=== PATIENT | female | born 1985 | race African-American/Black ===

== ENCOUNTER 2020-01-27 22:41 | Emergency (ER) | payer SELFPAY ==
[~2020-01-27] VITALS: Ht 144.8 cm; Wt 50.8 kg
[2020-01-27 23:06] LABS: STREPTOCOCCUS GRP A ANTIGEN NEGATIVE (NEGATIVE)
[2020-01-27 23:16] LABS: INFLUENZAE A&B ANTIGEN (RAPID) NEGATIVE (NEGATIVE)
--- OUTSIDE RECORDS SUMMARY | 2020-01-27 23:22 | XMS REPORT | Continuity of Care Document ---
Author Author [facility] Organization [facility] Address [address] [place] [address] Phone Unavailable Care Team Providers Care Laboratory Manager Name Role Phone Asked, Pcp No PCP Unavailable Payers Payer Name Policy Type Policy Number Effective Date Expiration Date S ource Problems Condition Name Condition Details Condition Category Status Onset Date Resolution Date Last Treatment Date Treating Clinician Comments Source Smoker Smoker Disease Active 2017-12-16 00:00:00 [facility] H/O LEEP H/O LEEP Disease Active 2017-12-16 00:00:00 [facility] Allergies, Adverse Reactions, Alerts Allergy Name Allergy Type Status Severity Reaction(s) Onset Date Inacti ve Date Treating Clinician Comments Source Multivitamin With Minerals Propensity to adverse reactions to drug Active Nausea and Vomiting 2017-12-16 00:00:00 [facility] acetaminophen DA [facility] 2017-07-01 00:00:00 [facility] Social History Social Habit Start Date Stop Date Quantity Comments Source History of tobacco use Cigarette Smoker [facility] Sex Assigned At [facility] Alcohol intake 2018-08-13 00:00:00 2018-08-13 00:00:00 Current drinker of alcohol (finding) [facility] History SDOH Food Worry 2017-12-16 00:00:00 2017-12-16 00:00:00 1 [facility] History SDOH Food Scarcity 2017-12-16 00:00:00 2017-12-16 00:00:00 1 [facility] Tobacco Comment 2017-12-16 00:00:00 2017-12-16 00:00:00 5 or 6 cig a day [facility] Alcohol Comment 2017-12-16 00:00:00 2017-12-16 00:00:00 wine occasion al [facility] Cigarettes smoked current (pack per day) - Reported 00:00:00 2017-07-03 00:00:00 [facility] Cigarette pack-years 2017-07-03 00:00:00 2017-07-03 00:00:00 [facility] Tobacco use and exposure 2017-07-03 00:00:00 2017-07-03 00:00:00 Angel[facility] lat[facility] used [facility] Smoking Status Start Date Stop Date Source Current every day smoker 2018-08-13 00:00:00 [facility] Medications Ordered Medication Name Filled Medication Name Start Date Stop Da te Current Medication? Ordering Clinician Indication Dosage Frequency Signature (SIG) Comments Components Source ibuprofen (MOTRIN) 400 mg tablet 2017-12-16 00:00:00 Yes Chronic right shoulder pain 400mg Take 1 tablet by mouth every 6 h ours as needed for Pain. [facility] Procedures This patient has no known procedures. Plan of Care Planned Activity Planned Date Details Comments Source Future Scheduled Test 2022-12-16 00:00:00 Screening for curry gnant neoplasm of cervix (procedure) [code = 944889947] [facility] Scheduled Test 2019-12-10 00:00:00 IMM Influenza Seas onal Dec to May (>/= 19 yrs) [code = IMM Influenza Seasonal Dec to May (>/= 19 yrs)] [facility] Scheduled Test 2014 00:00:00 Screening for curry gnant neoplasm of cervix (procedure) [code = 041285674] [facility] Encounters Start Date/Time End Date/Time Encounter Type Admission Type [facility] Care Department Encounter ID Source 2018-01-29 00:00:00 2018-01-29 00:00:00 Outpatient [facility] [id number] [facility] 2018-01-14 00:00:00 2018-01-14 00:00:00 Outpatient [facility] [id number] [facility] 2017-12-20 14:06:24 2017-12-20 14:06:24 Outpatient [facility] [id number] [facility] 2017-12-20 13:35:03 2017-12-20 13:35:03 Outpatient [facility] [id number] [facility] 2017-12-17 00:00:00 2017-12-17 00:00:00 Outpatient [facility] [id number] [facility] 2017-12-17 00:00:00 2017-12-17 00:00:00 Outpatient [facility] [id number] [facility] 2017-12-16 09:41:57 2017-12-16 09:41:57 Outpatient [facility] [id number] [facility] 2017-12-16 08:23:09 2017-12-16 08:23:09 Outpatient [facility] [id number] [facility] 2017-12-16 00:00:00 2017-12-16 00:00:00 Outpatient [facility] [id number] [facility] Results This patient has no known results.
--- OUTSIDE RECORDS SUMMARY | 2020-01-27 23:22 | XMS REPORT | Clinical Summary ---
Author Author [facility] Organization [facility] Address Unknown Phone Unavailable Care Team Providers Care Senior Analyst Name Role Phone PCP Unavailable Allergies Comments Active Allergy Reactions Severity Noted Date Multivitamin With Nausea and 12/16/2017 Minerals Vomiting Medications End Date Status Medication Sig Dispensed Refills Start Date Active ibuprofen (MOTRIN) 400 mg Take 1 tablet 30 tablet 0 tabletIndications: by mouth 8 Chronic right shoulder every 6 hours pain as needed for Pain. Active Problems Problem Noted Date Smoker 12/16/2017 H/O LEEP 12/16/2017 Immunizations Name Administration Dates Next Due Influenza, 12/16/2017 (Deferred: Patie nt Refused) Vaccine<FLUCELVAX>(Multi- Dose) Tdap (Tetanus Toxoid, 12/16/2017 (Deferred: Patie nt Refused) Reduced Diphtheria Toxoid And Acellular Pertussis, Absorbed) Family History Relation Name Status Comments Brother Alive 1 brother Father Alive Maternal Aunt cancer Alive Mother Alive Sister Alive 1 sister Social History Date Tobacco Use Types Packs/Day Years Used Current Every Day Smoker Cigarettes 5 Smokeless Tobacco: Never Used Tobacco Cessation: Ready to Quit: No; Co unseling Given: Yes Comments: 5 or 6 cig a day Drinks/Week oz/Week Comments Alcohol Use wine occasional Yes Food Insecurity Answer Date Recorded Within the past 12 months, you worried that your Never maximiliano e 12/16/2017 food would run out before you got money to buy more. Within the past 12 months, the food you bought Never true 12/16/2017 just didn't last and you didn't have mo charlie to get more. Sex Assigned at Date Recorded Not on file Industry Job Start Date Occupation Not on file Not on file Not on file Travel End Travel History Travel Start No recent travel history available. Last Filed Vital Signs Not on file Plan of Treatment Health Maintenance Due Date Last Done Comments Pap Cervical Cancer Scrn 2014 IMM Influenza Seasonal 12/10/2019 Oct to May (>/= 19 yrs) HPV Cervical Cancer Scrn 12/16/2022 12/16/2017 Results Not on fileafter 01/26/2019
--- OUTSIDE RECORDS SUMMARY | 2020-01-27 23:22 | XMS REPORT | Clinical Summary ---
Author Author [facility] Organization [facility] Address Unknown Phone Unavailable Care Team Providers Care Peanut Salter Name Role Phone Asked, No Pcp PCP Unavailable Allergies No Known Active Allergies Medications No known medications Active Problems Not on file Surgical History Surgery Date Site/Laterality Comments DILATION AND CURETTAGE OF UTERUS Medical History Medical History Date Comments Abnormal Pap smear of cervix Social History Date Tobacco Use Types Packs/Day Years Used Current Every Day Smoker Cigarettes 0.5 5 Smokeless Tobacco: Never Used Drinks/Week oz/Week Comments Alcohol Use No Sex Assigned at Date Recorded Not on file Last Filed Vital Signs Not on file Plan of Treatment Not on file Results Not on fileafter 01/26/2019 Advance Directives For more information, please contact: [phone] Patient Dispatcher Motor Vehicle Explanation Type Date Recorded Advance Directives, 02/28/2017 2:37 AM Living Will and Medical Power of Regional Director
--- NOTE | 2020-01-28 00:07 | Diagnostic Imaging Report ---
EXAMINATION: CHEST SINGLE (PORTABLE) INDICATION: cough/sore throat COMPARISON: None FINDINGS: TUBES and LINES: None. LUNGS: Normal lung volumes. Patchy opacities in the mid right lung. Left lung is clear. PLEURA: No pleural effusion or pneumothorax. HEART AND MEDIASTINUM: The cardiomediastinal silhouette is unremarkable. BONES AND SOFT TISSUES: No acute osseous lesion. Soft tissues are unremarkable. UPPER ABDOMEN: No free air under the diaphragm. IMPRESSION: Patchy opacities in the mid right lung concerning for pneumonia. Signed by: Andrew Howard MD on 01/28/2020 12:04 AM
--- NOTE | 2020-01-28 00:30 | Emergency Department Note ---
History of Present Illnes History of Present Illness Chief Complaint: COVID PUI History of Present Illness This is a 34 year old female walks in for dry cough, loss of voice, and throat pain since last saturday. works in a daycare. She states that she does not know if she has been around covid-positive cases. Since saturday, symptoms have progressively become worse . Historian: Patient Arrival Mode: Car Wastewater Analyst Required: No Onset (how long ago): day(s) (10) Location: CHEST, THROAT, Quality: COUGH, SORE THROAT, HORSE VOICE Radiation: Reports non-radiation Severity: moderate Onset quality: gradual Duration (how long): day(s) (10) Timing of current episode: constant Progression: worsening Chronicity: new Relieving factors: none Exacerbating factors: none Associated symptoms: Reports denies other symptoms Treatments prior to arrival: none Past Medical/Family History Physician Review I have reviewed the patient's past medical and family history. Any updates have been documented here. Past Medical History Recent Fever: No Clinical Suspicion of Infectio: Yes New/Unexplained Change in Ment: No Past Medical History: None Social History Smoking Cessation: Never Smoker Counseling Performed: No Alcohol Use: None Any Illegal Drug Use: No Review of Systems Review of Systems Constitutional: Reports no symptoms EENTM: Reports as per HPI Cardiovascular: Reports no symptoms Respiratory: Reports as per HPI Gastrointestinal: Reports no symptoms Genitourinary: Reports no symptoms Musculoskeletal: Reports no symptoms Integumentary: Reports no symptoms Neurological: Reports no symptoms Psychological: Reports no symptoms Endocrine: Reports no symptoms Hematological/Lymphatic: Reports no symptoms Physical Exam Related Data Allergies: Coded Allergies: No Known Allergies (Unverified , 01/27/20) Triage Vital Signs Vital Signs Date Time Temp Pulse Resp B/P (MAP) Pulse Ox O2 Delivery O2 Flow Rate FiO2 01/27/20 22:48 98.3 79 22 153/92 99 Room Air Vital signs reviewed: Yes Physical Exam CONSTITUTIONAL Constitutional: Present well-developed, Present well-nourished; Absent distressed HENT HENT: Present normocephalic, Present atraumatic, Present nose normal, Present erythema (MILD PHARYNGEAL); Absent oropharyngeal exudate, Absent tonsillar excudate HENT L/R: Present left ext ear normal, Present right ext ear normal EYES Eyes: Reports PERRL, Reports conjunctivae normal NECK Neck: Present ROM normal PULMONARY Pulmonary: Present effort normal, Present breath sounds normal; Absent respiratory distress CARDIOVASCULAR Cardiovascular: Present regular rhythm, Present heart sounds normal, Present capillary refill normal, Present normal rate GASTROINTESTINAL Abdominal: Present soft, Present nontender, Present bowel sounds normal GENITOURINARY Genitourinary: Present exam deferred SKIN Skin: Present warm, Present dry MUSCULOSKELETAL Musculoskeletal: Present ROM normal NEUROLOGICAL Neurological: Present alert, Present oriented x 3, Present no gross motor or sensory deficits PSYCHOLOGICAL Psychological: Present mood/affect normal, Present judgement normal Results Laboratory Laboratory Laboratory Tests Test 01/27/20 22:50 Influenza Virus Types A,B Antigen Negative (NEGATIVE) Group A Streptococcus Screen Negative (NEGATIVE) Lab results reviewed: Yes Imaging Imaging results reviewed: Yes Impressions Procedure: [id number] DX/CHEST SINGLE (PORTABLE) Exam Date: Exam Time: REPORT STATUS: Signed EXAMINATION: CHEST SINGLE (PORTABLE) INDICATION: cough/sore throat COMPARISON: None FINDINGS: TUBES and LINES: None. LUNGS: Normal lung volumes. Patchy opacities in the mid right lung. Left lung is clear. PLEURA: No pleural effusion or pneumothorax. HEART AND MEDIASTINUM: The cardiomediastinal silhouette is unremarkable. BONES AND SOFT TISSUES: No acute osseous lesion. Soft tissues are unremarkable. UPPER ABDOMEN: No free air under the diaphragm. IMPRESSION: Patchy opacities in the mid right lung concerning for pneumonia. Signed by: Gabriele Rodríguez MD on 01/28/2020 12:04 AM Dictated By: GABRIELE RODRÍGUEZ MD [id number] Transcribed By: JOSE on 01/28/20 0004 COPY TO: LG COTTRELL MD~ Assessment & Plan Medical Decision Making MDM PT WITH COUGH,SORE THROAT RAPID FLU, STREP SCREE, CXR ORDERED TO EVAL FOR PNEUMONIA, INFLUENZA, STREP P HARYNGITIS Assessment & Plan Final Impression: (1) Pneumonia Depart Disposition: HOME, SELF-CARE Last Vital Signs Date Time Temp Pulse Resp B/P (MAP) Pulse Ox O2 Delivery O2 Flow Rate FiO2 01/27/20 22:48 98.3 79 22 153/92 99 Room Air LG COTTRELL MD Jan 28, 2020 00:30
[2020-01-28 00:32] VITALS: BP 107/82
== END 2020-01-28 00:33 | disposition home or self-care (01) ==
LOC: ER 23:17
DX: J18.9 Pneumonia, unspecified organism (principal); R05 Cough
CPT/HCPCS: 71045; 83518; 87070; 87400; 99283

== ENCOUNTER 2020-02-05 12:26 | Emergency (ER) | payer SELFPAY ==
[~2020-02-05] VITALS: Ht 144.8 cm; Wt 50.8 kg
== END 2020-02-05 13:00 | disposition home or self-care (01) ==
LOC: ER 13:00
DX: R20.2 Paresthesia of skin (principal)
CPT/HCPCS: 99282

== ENCOUNTER 2021-05-18 21:53 | Emergency (ER) | payer OTHER ==
[~2021-05-18] VITALS: Ht 144.8 cm; Wt 50.8 kg
[2021-05-18] MEDS ORDERED: HYDROXYZINE HCL25 MG PO (22:04)
== END 2021-05-18 22:14 | disposition home or self-care (01) ==
LOC: ER 22:05
DX: R20.2 Paresthesia of skin (principal); F41.9 Anxiety disorder, unspecified
CPT/HCPCS: 99282